=== PATIENT | male | born 1990 | race Hispanic/Latino ===

== ENCOUNTER 2020-09-25 18:17 | Emergency (ER) | payer OTHER ==
[~2020-09-25] VITALS: Ht 182.9 cm; Wt 93.8 kg
--- NOTE | 2020-09-25 20:19 | REPVR ---
PROCEDURE INFORMATION: Exam: MR Lumbar Spine Without Contrast. Exam date and time: 09/25/2020 7:55 PM Age: 30 years old Clinical indication: Low back pain and other: Lbp with ED and urinary retention TECHNIQUE: Imaging protocol: Multiplanar magnetic resonance images of the lumbar spine without intravenous contrast. COMPARISON: No relevant prior studies available. FINDINGS: Patient motion. Vertebral body height and AP alignment is preserved. Negative for discitis/osteomyelitis. Conus medullaris terminates at T12-L1. No epidural fluid collection. L1-L2: No central or foraminal stenosis. L2-L3: No central or foraminal stenosis. L3-L4: Borderline central canal stenosis on a congenital basis. No significant foraminal stenosis. L4-L5: Mild bilateral facet joint arthropathy. Mild central canal stenosis on a congenital basis. No significant foraminal stenosis. L5-S1: Mild bilateral facet joint arthropathy. Mild narrowing of the central canal on a congenital basis. No significant foraminal stenosis. IMPRESSION: 1. No acute abnormality. 2. 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 Electronically signed by: Chano Alas On 09/25/2020 20:19:43 PM
[2020-09-25 20:33] VITALS: BP 152/72
--- NOTE | 2020-09-28 10:56 | ED PDOC ---
Post-Departure Follow-Up mri ls spine faxed to [facility] Elaine Dawson MD Sep 28, 2020 10:56
== END 2020-09-25 20:40 | disposition home or self-care (01) ==
LOC: M ED 18:17
DX: M48.07 Spinal stenosis, lumbosacral region (principal)

== ENCOUNTER 2020-10-28 10:53 | Emergency (ER) | payer OTHER ==
[~2020-10-28] VITALS: Ht 182.9 cm; Wt 95.5 kg
--- OUTSIDE RECORDS SUMMARY | 2020-10-28 11:01 | CCD ---
Author Author [facility] Organization [facility] Address Unknown Phone Unavailable Support Name Relationship Address Phone [facility] Next Of Kin [address] [place] [address] Unavailable Re-disclosure Warning The records that you are about to access may contain information from federally-assisted alcohol or drug abuse programs. If such information is present, then the following federally mandated warning applies: This information has been disclosed to you from records protected by federal confidentiality rules (42 CFR part 2). The federal rules prohibit you from making any further disclosure of this information unless further disclosure is expressly permitted by the written consent of the person to whom it pertains or as otherwise permitted by 42 CFR part 2. A general authorization for the release of medical or other information is NOT sufficient for this purpose. The Federal rules restrict any use of the information to criminally investigate or prosecute any alcohol or drug abuse patient.The records that you are about to access may contain highly sensitive health information, the redisclosure of which is protected by Article 27-F of the [facility] Public Health law. If you continue you may have access to information: Regarding HIV / AIDS; Provided by facilities licensed or operated by the [facility] Office of Mental Health; or Provided by the [facility] Office for People With Developmental Disabilities. If such information is present, then the following [facility] mandated warning applies: This information has been disclosed to you from confidential records which are protected by state law. State law prohibits you from making any further disclosure of this information without the specific written consent of the person to whom it pertains, or as otherwise permitted by law. Any unauthorized further disclosure in violation of state law may result in a fine or intermediate sentence or both. A general authorization for the release of medical or other information is NOT sufficient authorization for further disc losure. Insurance Providers Payer name Policy type / Coverage type Policy ID Covered green party ID Covered green party's relationship to beaver Policy Beaver Plan Information [facility] [employer] [id number]
--- NOTE | 2020-10-28 11:47 | REP ---
INDICATION: fall/head inj. COMPARISON: None. TECHNIQUE: Helical scanning is acquired. 5 mm axial images were reformatted. Coronal MPR images were generated. FINDINGS: Bone window settings demonstrate an intact bony calvarium. There is no evidence of skull fracture or incidental bony calvarial lesion. The visualized paranasal sinuses appear clear. No intraorbital abnormality is seen. On soft tissue window setting images; the lateral, third, and fourth ventricles are normal in size and position. Sanchez-white differentiation pattern is normal above and below the tentorium. There are is no evidence of intracranial hemorrhage. No mass, edema, infarction, or midline shift is seen. No extra-axial fluid collection is appreciated. IMPRESSION: Negative noncontrast head CT. <Electronically signed by Mariano Lopez > 10/28/20 [id number]
--- NOTE | 2020-10-28 11:49 | REP ---
INDICATION: fall/head inj. COMPARISON: None. TECHNIQUE: Helical scanning is acquired and overlapping 2 mm high resolution axial images were generated and reviewed at bone and soft tissue window settings. Coronal and sagittal multiplanar re-formations images are generated. FINDINGS: There is no evidence of cervical spine element fracture. No skull base fracture is seen. Cervical vertebral body heights are preserved. Alignment is normal. Facet joints are normally aligned bilaterally at each cervical level on multiplanar re-formations images. There is no evidence of intraspinal or paraspinal hematoma. No extra vertebral abnormality is seen. There is degenerative discogenic calcification at the anterior margin of the C4-5 and C5-6 discs. IMPRESSION: Minimal early degenerative disc changes at C4-5 and C5-6, otherwise negative CT study of the cervical spine without contrast. No fracture seen. <Electronically signed by Mariano Lopez > 10/28/20 [id number]
--- OUTSIDE RECORDS SUMMARY | 2020-10-28 12:13 | CCD ---
Author Author [facility] Organization [facility] Address Unknown Phone Unavailable Support Name Relationship Address Phone [facility] Next Of Kin [address] [place] [address] Unavailable Re-disclosure Warning The records that you [...] is protected by Article 27-F of the [facility] Public Health law. If you continue you may have access to information: Regarding HIV / AIDS; Provided by facilities licensed or operated by the [facility] Office of Mental Health; or Provided by the [facility] Office for People With Developmental Disabilities. If such information is present, then the following [facility] mandated warning applies: This information has been [...] law may result in a fine or mcfp sentence or both. A general authorization for the release of medical or other information is NOT sufficient authorization for further disc losure. Insurance Providers Payer name Policy type / Coverage type Policy ID Covered green party ID Covered green party's relationship to beaver Policy Beaver Plan Information [facility] [employer] [id number]
[2020-10-28 12:38] VITALS: BP 121/61
== END 2020-10-28 12:40 | disposition home or self-care (01) ==
LOC: M ED 10:53
DX: S00.83XA Contusion of other part of head, initial encounter (principal); W18.39XA Other fall on same level, initial encounter; Y92.89 Other specified places as the place of occurrence of the external cause